=== PATIENT | male | born 1990 | race Caucasian/White ===

== ENCOUNTER 2024-07-29 09:29 | Day surgery (SDC) | payer MEDICAID, OTHER ==
[~2024-07-29] VITALS: Ht 167.6 cm; Wt 88.5 kg
[2024-07-29] MEDS ORDERED: LIDOCAINE MPF 2% 20 MG/1 ML, 5 ML VIAL INH ONE (10:00)
[2024-07-29] MEDS ORDERED: IOHEXOL 300 mgI/mL, 50 mL INFUS..BTL IV ONE (10:00)
[2024-07-29] MEDS ORDERED: methylPREDNISolone ACETATE 40 MG/ML ONE (10:00)
[2024-07-29] MEDS ORDERED: NORMAL SALINE 10 ML VIAL ONE (10:00)
[2024-07-29] MEDS ORDERED: MIDAZOLAM HCL 5 MG/5 ML VIAL ONE (11:16)
[2024-07-29] MEDS ORDERED: fentaNYL CITRATE/PF 100 MCG/2 ML AMP ONE (11:16)
[2024-07-29 12:30] VITALS: O2SAT 100
[2024-07-29 14:53] VITALS: BP_SYST 118; PULSE 60; RESP 14
== END 2024-07-29 13:25 | disposition home or self-care (01) ==
LOC: SDS 09:29 → SMU 09:44 → SDS 13:25
PROVIDERS: ATTEND Internal Medicine
DX: M51.16 Intervertebral disc disorders with radiculopathy, lumbar region (principal); M25.562 Pain in left knee; Z79.899 Other long term (current) drug therapy
CPT/HCPCS: 62323; Q9967; J1010; 76000; J1030; J2250; J3010